=== PATIENT | female | born 1940 | race African-American/Black ===

== ENCOUNTER 2018-01-12 02:45 | Emergency (ER) | payer SELFPAY ==
[~2018-01-12] VITALS: Ht 160 cm; Wt 53.0 kg
[2018-01-12] MEDS ORDERED: ACETAMINOPHEN 325MG TABLET PO ONE (08:45)
[2018-01-12 11:25] VITALS: BP 123/70
== END 2018-01-12 11:25 | disposition home or self-care (01) ==
LOC: ER 02:45
DX: S93.402A Sprain of unspecified ligament of left ankle, initial encounter (principal); M54.5 Low back pain; E03.9 Hypothyroidism, unspecified; V49.40XA Driver injured in collision with unspecified motor vehicles in traffic accident, initial encounter; Y93.I9 Activity, other involving external motion; Y92.89 Other specified places as the place of occurrence of the external cause; Y99.8 Other external cause status
CPT/HCPCS: 72100; 73610; 99284